=== PATIENT | female | born 1955 | race Caucasian/White ===

== ENCOUNTER → 2020-04-18 14:02 | Outpatient (CLI) | payer OTHER, SELFPAY ==
[2020-04-18 14:26] LABS: Chloride 107 mmol/L (98-107); Potassium 4.5 mmoL/L (3.5-5.1); Sodium 138 mmol/L (136-145)
[2020-04-18 14:28] LABS: Alanine Aminotransferase 26 U/L (12-78); Alkaline Phosphatase 86 U/L (38-126); Anion Gap 14.5 mEq/L (5-15); Aspartate Amino Transferase 41 U/L (14-36); Bilirubin,Total 0.3 mg/dl (0.2-1.3); Blood Urea Nitrogen 23 mg/dl (7-17); Carbon Dioxide 21 mmol/L (22.0-30.0); Estimated Glomerular Filt Rate 63 ml/min (>60); GFR (African American) 77 ML/MIN (>60)
[2020-04-18 14:29] LABS: Albumin Level 4.7 g/dl (3.5-5.0); Albumin/Globulin Ratio 1.6 (1.1-1.8); Calcium 10.1 mg/dl (8.4-10.2); Chol/HDL Ratio 2.2 (1-3.5); Cholesterol 225 mg/dl (140-200); Globulin 2.9 g/dL (1.3-3.2); Glucose 146 mg/dl (74-100); HDL Cholesterol 102 mg/dl (40-60); Iron 102 ug/dL (37-170); Total Protein,Serum 7.6 g/dl (6.3-8.2); Triglycerides 81 mg/dl (30-150); VLDL Cholesterol 16 mg/dL (0-40)
[2020-04-18 14:36] LABS: Basophils # 0.1 K/mm3 (0-0.2); Basophils % 1.1 % (0.1-2.0); Eosinophils # 0.3 K/mm3 (0.0-0.4); Eosinophils % 3.5 % (0.1-12.0); Hematocrit 34.3 % (37.0-47.0); Hemoglobin 10.8 g/dL (12.2-16.2); Lymphocytes # 1.8 K/mm3 (0.7-4.5); Mean Corpuscular HGB Conc 31.5 g/dL (31.8-35.4); Mean Corpuscular Hemoglobin 30.8 pg (27.0-31.2); Mean Corpuscular Volume 97.7 fl (81-99); Mean Platelet Volume 8.6 fl (7.4-10.4); Monocytes # 0.6 K/mm3 (0.1-1.0); Monocytes % 7.3 % (1.7-9.3); Neutrophils # 5.4 K/mm3 (1.8-7.8); Platelet Count 332 K/mm3 (142-424); Red Blood Count 3.51 M/mm3 (4.20-5.40); Red Cell Distribution Width 12.9 % (11.5-17.5); White Blood Count 8.2 K/mm3 (4.8-10.8)
[2020-04-18 14:41] LABS: Direct LDL Cholesterol 90.86 mg/dL (100-129)
[2020-04-18 14:46] LABS: T4 (Thyroxine) 9.7 ug/dl (5.53-11.0)
[2020-04-18 15:14] LABS: Hemoglobin A1C 5.9 % (4.0-6.0)
[2020-04-19 15:30] LABS: Ferritin 63.8 ng/ml (11.1-264)
[2020-04-19 18:27] LABS: Total Iron Binding Capacity 299 ug/dL (265-497)
[2020-04-19 20:05] LABS: Iron 100 ug/dL (37-170)
== END ==
PROVIDERS: Visit Provider Physician Assistant
DX: D64.9 Anemia, unspecified (principal); I10 Essential (primary) hypertension
CPT/HCPCS: 80053; 80061; 82728; 83036; 83540; 83550; 84436; 84443; 85025

== ENCOUNTER → 2020-08-01 09:02 | Outpatient (CLI) | payer OTHER, SELFPAY ==
--- NOTE | 2020-08-01 09:03 | XR_ITS ---
PROCEDURE: XR DEXA AXIAL SKELETON CLINICAL HISTORY: postmenopausal female COMPARISON: No exams were available for comparison FINDINGS: The right hip BMD is 0.636 with a T-score of -1.9. The left hip BMD is 0.634 with a T-score of -1.9. The lumbar spine BMD is 0.952 with a T-score of -0.9. IMPRESSION: This patient is considered osteopenic according to the World Health Organization criteria. Bone density is between 10 and 25 percent below young normal. Fracture risk is moderate. Treatment is advised. Based on these results a follow-up exam is recommended in 2 year. Dictated by: Jhonathan Lugo MD 08/01/2020 19:32 Jhonathan Lugo MD in [place] 08/02/2020 20:33
== END ==
PROVIDERS: PCP Emergency Medicine; Visit Provider Physician Assistant
DX: Z78.0 Asymptomatic menopausal state (principal)
CPT/HCPCS: 77080

== ENCOUNTER → 2021-01-16 14:02 | Outpatient (CLI) | payer OTHER, SELFPAY ==
--- NOTE | 2021-01-16 14:02 | US_ITS ---
PROCEDURE: US BREAST LT COMPLETE CLINICAL INDICATION: patient refuses mammogram History of right breast cancer COMPARISON: US US BREAST RT COMPLETE from 01/16/2021 FINDINGS: At 2 o'clock outer there is a small hypoechoic nodule at 3 mm. The remaining breast has an unremarkable sonographic appearance. No old studies available for comparison. IMPRESSION: Category 0, incomplete. Hypoechoic nodule at 2 o'clock measuring 3 mm. Recommend correlation with mammography Dictated by: Jhonathan Lugo MD 01/25/2021 10:03 Jhonathan Lugo MD in [place] 01/25/2021 10:03
--- NOTE | 2021-01-16 14:02 | US_ITS ---
PROCEDURE: US BREAST RT COMPLETE CLINICAL INDICATION: patient refuses mammogram History of right breast cancer with surgery and radiation COMPARISON: No exams were available for comparison FINDINGS: At the 10 o'clock position there is an area asymmetric decreased echogenicity possibly due to patient's scar. This measures approximately 1.5 by 0.6 cm no other abnormalities are evident. IMPRESSION: Hypoechoic irregular region at the 10 o'clock area and at the region of the patient's scar. This could be due to scarring. Unfortunately a single ultrasound without comparison cannot exclude the possibility of neoplasm based on sonographic appearance. Mammogram and correlation with old imaging studies suggested BI-RADS category 0 incomplete. Recommend diagnostic mammogram and correlation with old studies. Dictated by: Jhonathan Lugo MD 01/25/2021 10:01 Jhonathan Lugo MD in [place] 01/25/2021 10:01
== END ==
PROVIDERS: PCP Physician Assistant; Visit Provider Physician Assistant
DX: N64.4 Mastodynia (principal)
CPT/HCPCS: 76641

== ENCOUNTER → 2021-02-10 13:31 | Outpatient (CLI) | payer OTHER, SELFPAY ==
--- NOTE | 2021-02-10 13:31 | MM_ITS ---
PROCEDURE: MM DIG MAMM BI DX W/CAD Digital Breast Tomosynthesis Included CLINICAL INDICATION: abn breast u/s Patient with history of breast cancer with abnormal ultrasound. COMPARISON: MG MG [facility]STER MAMMOGRAPHY DX DIGITAL from 02/29/2012 MG,US US BREAST RT from 02/29/2012 US US BREAST RT COMPLETE from 01/16/2021 US US BREAST LT COMPLETE from 01/16/2021 TECHNIQUE: Standard CC and MLO images and 3D Tomosynthesis was obtained. R2 CAD reviewed. FINDINGS: Report delayed waiting on old studies for comparison made available on 02/17/2021 There is average fibroglandular tissue. There postsurgical changes in the upper outer aspect of the right breast with some architectural distortion likely from scarring. Surgical clips are present in this region. There are numerous benign-appearing calcifications. Ultrasound of the right breast demonstrated a hypoechoic area at the 10 o'clock region which may be related to postsurgical scar. There well-circumscribed 9 mm nodules present in the upper outer aspect of the left breast with central lucency consistent with a lymph node. No malignant appearing mass evident in the left breast. No malignant appearing microcalcifications. There is some faint calcifications in the central left breast at the 12 o'clock region best seen on the CC views probably unchanged given difference in technique. No mammographic abnormality to correspond to the 2 mm nodule on the mammogram in the left breast. IMPRESSION: Probably benign findings with postsurgical changes of the right breast and faint calcification in the left breast. Suggest 6 month bilateral sonographic and mammographic follow-up to confirm stability BI-RAD Category: 3 Probably Benign Finding Short Term Follow-Up FOLLOW-UP: 6M 6 Month Follow-up (A letter has been sent to the patient regarding results of the study.) Dictated by: Jhonathan Lugo MD 02/20/2021 10:10 Jhonathan Lugo MD in [place] 02/20/2021 10:10
== END ==
PROVIDERS: PCP Physician Assistant; Visit Provider Physician Assistant
DX: R92.8 Other abnormal and inconclusive findings on diagnostic imaging of breast (principal)
CPT/HCPCS: 77062; 77066; G0279

== ENCOUNTER 2021-04-17 13:01 | Emergency (ER) | payer OTHER, SELFPAY ==
[2021-04-17 13:20] VITALS: BP 118/85; PULSE 95; RESP 18; TEMP 36.8; O2SAT 95; BMI 20.6
--- NOTE | 2021-04-17 13:58 | HMH.EDUTC ---
[facility] [place] Disposition Clinical Impression: Sciatica Qualifiers: Laterality: right Qualified Code(s): M54.31 - Sciatica, right side Disposition: Home, Self-Care Condition on Discharge: Good Instructions: Sciatica, DI for Sciatica, Cyclobenzaprine, Etodolac Additional Instructions: *Etodolac geraldine 8 hours with meal as needed for pain/inflammation *Not additional anti-inflammatory like motrin, aleve, advil with the above amount of ibuprofen. You can still take Tylenol every 4 hours as needed if you need something else for pain *Ice 20 minutes every 2 hours for the first 48 hours after the initial injury followed by moist heat every 20 minutes 3-4 times a day to affected area *Muscle relaxer every 8 hours as needed for muscle spasms but remember, it WILL cause drowsiness You cannot take it and drive, operate machinery or care for small children. *Keep this area active, no movement leads to more stiffness, However take it easy and avoid heavy lifting pushing or pulling *Follow up with you family doctor if no improvement for further treatment Return if needed Straight to ER if any life threatening symptoms Prescriptions: Etodolac 200 mg PO Q8HP PRN #20 cap PRN Reason: Moderate Pain Transmission Status: Received by [id number] Cyclobenzaprine HCl [Flexeril 10mg tablet] 10 mg PO TID PRN 30 Days #90 tab PRN Reason: Muscle Spasm Transmission Status: Received by [id number] Referrals: Susana Garcias PA [Primary Care Provider] - As needed Time of Disposition: 14:16 Medical Decision Making - Marco Inquiry Pt receiving controlled substance: No Marco was queried for this patient: No Vital Signs: 04/17/21 13:20 04/17/21 14:20 Temperature 98.2 F 98.2 F Temperature Source Oral Pulse Rate 95 H Pulse Rate [Right Brachial] 95 H Respiratory Rate 18 18 Blood Pressure 118/85 Blood Pressure [Right Arm] 118/85 Blood Pressure Mean [Right Arm] 96 Blood Pressure Source [Right Arm] Automatic Cuff Blood Pressure Position [Right Arm] Sitting 02 Sat by Pulse Oximetry 95 Oxygen Delivery Method Room Air Medical Decision Narrative: Recommended xray and patient declined denies pain in her back reports starts at top of buttock area and ran down into upper leg [facility] [place] HPI - General Stated complaint: Right thigh pain Time Seen by Provider: 04/17/21 13:58 Mode of Arrival: Ambulatory Source of Information: Patient Limitations: No Limitations Description of Symptoms (Recalled from Triage Doc. by RN): PATIENT C/O RIGHT THIGH PAIN THAT RADIATES INTO RIGHT HIP THAT STARTED SATURDAY NIGHT HEENT Symptoms (Recalled from RN notes): No Resp Symptoms (Recalled from RN notes): No Skin Symptoms (Recalled from RN notes): No MS Symptoms (Recalled from RN notes): Yes Functional Status (Recalled from RN notes): WNL - History of Present Illness Provider Complaint: Patient states that she noticed about 3-4 days ago she was having pain in her right thigh area into her right hip States that she wasnt sure if the pain was coming from the hip to the thigh or what but she noticed she was sore just above her buttock area States feels like pain is now in her buttock area too Denies back pain States that pain is worse when she tries to sit or lay on that side States that she has tried muscle rubs but hasnt helped much - Related Data Previous Rx's Medication Instructions Recorded fluticasone propionate 50 1 spray INTRANASAL QDAY 90 Days 07/18/20 mcg/actuation nasal #47.4 g spray,suspension loratadine 10 mg tablet 10 mg PO DAILY #90 tab 07/18/20 atorvastatin 20 mg tablet See Rx Instructions .ROUTE 01/11/21 .COMPLEX #90 tab calcium carbonate 600 mg (1,500 1 tab PO DAILY #90 tab 01/11/21 mg)-vitamin D3 400 unit tablet cyclobenzaprine 10 mg tablet 10 mg PO TID PRN #30 tab 01/11/21 pramipexole 1 mg tablet See Rx Instructions .ROUTE 01/11/21 .COMPLEX #90 tab denosumab 60 mg/mL subcutaneous 60 mg SQ [id number] #1 ml 01/12/21 dashain
[2021-04-17 14:20] VITALS: BP 118/85; PULSE 95; RESP 18; TEMP 36.8; O2SAT 95
== END 2021-04-17 14:24 | disposition home or self-care (01) ==
PROVIDERS: Emergency Provider Nurse Practitioner; PCP Physician Assistant
DX: M54.31 Sciatica, right side (principal); E78.5 Hyperlipidemia, unspecified
CPT/HCPCS: 99202; G0463

== ENCOUNTER 2021-06-09 12:49 | Emergency (ER) | payer OTHER, SELFPAY ==
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
--- NOTE | 2021-06-09 14:35 | XR_ITS ---
PROCEDURE: XR SHOULDER RT MIN 2V CLINICAL INDICATION: right shoulder pain COMPARISON: No exams were available for comparison FINDINGS: No fracture apparent. Mild superior elevation of the distal aspect of the right clavicle at 6 mm. Minimal osteoarthritic change glenohumeral joint. Slight cortical irregularity of the greater tuberosity which may be seen with rotator cuff disease. Other findings:Surgical clips are present in the right axilla IMPRESSION: Degenerative changes Dictated by: Jhonathan Lugo MD 06/12/2021 10:01 Jhonathan Lugo MD in [place] 06/12/2021 10:01
[2021-06-09 14:38] VITALS: BP 156/84; PULSE 81; RESP 18; TEMP 36.8; O2SAT 97
[2021-06-09 15:37] VITALS: BP 156/84; PULSE 81; RESP 18; TEMP 36.8; O2SAT 97
== END 2021-06-09 15:39 | disposition home or self-care (01) ==
PROVIDERS: Emergency Provider Nurse Practitioner Family; PCP Emergency Medicine
DX: M25.511 Pain in right shoulder (principal); E78.5 Hyperlipidemia, unspecified; Z88.8 Allergy status to other drugs, medicaments and biological substances
CPT/HCPCS: 73030; 96372; 99202; G0463

== ENCOUNTER → 2021-08-22 09:18 | Outpatient (POV) | payer MEDICARE, OTHER, SELFPAY | PROVIDERS: Visit Provider Dermatology | DX: Z00.00 Encounter for general adult medical examination without abnormal findings (principal) ==

== ENCOUNTER → 2021-08-23 13:24 | Outpatient (CLI) | payer MEDICARE, OTHER, SELFPAY ==
--- NOTE | 2021-08-23 13:24 | MM_ITS ---
PROCEDURE INFORMATION: Exam: US Right Breast, Complete US Left Breast, Complete MG Bilateral Diagnostic Breast Tomosynthesis Exam date and time: 08/23/2021 1:24 PM Age: 66 years old Clinical indication: History of right lumpectomy and radiation therapy. Short-term follow-up was recommended on 02/10/2021 to assess stability of central left 12 o'clock calcifications and right postoperative findings TECHNIQUE: Imaging protocol: Complete ultrasound of all four quadrants of the Right breast and the retroareolar regions, including ultrasound of the axilla when performed. Complete ultrasound of all four quadrants of the Left breast and the retroareolar regions, including ultrasound of the axilla when performed. Bilateral Diagnostic tomosynthesis and 2D mammography including computer-aided detection (CAD) when performed. Unilateral or bilateral exam. COMPARISON: 1. MG MM DIG MAMM BI DX W/CAD 02/10/2021 1:34 PM 2. US BREAST LT COMPLETE 01/16/2021 3:07 PM 3. US BREAST RT COMPLETE 01/16/2021 2:57 PM FINDINGS: MAMMOGRAPHY: There are scattered areas of fibroglandular density. There are stable postoperative changes within the right breast and axilla Stable benign-appearing calcifications are present. No new mass, architectural distortion, or suspicious calcifications have developed to suggest malignancy. No axillary adenopathy. ULTRASOUND: Right: Horizontal isoechoic circumscribed structure along the 10 o'clock axis 8 cm from the right nipple has features highly suggestive of postoperative scarring and fat lobule measuring 2.2 x 0.5 x 1.2 cm. No suspicious solid or cystic mass is present. No architectural distortion or shadowing is present. No axillary adenopathy is present. Left: Minimally complex and simple cysts within the left breast measure 4 mm left 1 o'clock 4 cm from the nipple, 3 mm left 1 o'clock 3 cm from the nipple and 6 mm left retroareolar. No suspicious solid or cystic mass is present. No architectural distortion or shadowing is present. No axillary adenopathy is present. IMPRESSION: No mammographic or sonographic evidence of malignancy. Recommend annual screening mammography unless otherwise clinically indicated. ASSESSMENT: BI-RADS category 2: Benign
--- NOTE | 2021-08-23 13:24 | CT_ITS ---
FINAL REPORT CLINICAL HISTORY: lung cancer screening FINDINGS: Low-Dose Chest CT CTDI vol (mGy): 2.90 DLP (mGy-cm): 100.03 Axial images were obtained from the lung apex to the mid abdomen by computed tomography. Low-dose protocol was utilized. FINDINGS: CHEST: There is no axillary adenopathy. There is no hilar or mediastinal adenopathy. The heart is proper size. There is no pericardial or pleural effusion. Limited images of the upper abdomen demonstrate an 8 mm low-attenuation mass in the right hepatic lobe which is nonspecific and may represent a cyst. Lung window images demonstrate mild emphysema. There is mild scarring. There is a 3 mm nodule in the right upper lobe on image 15. There are postoperative changes in the right axilla. IMPRESSION: Lung RADS category 2. Recommend 12 month follow-up low-dose chest CT. Reviewed, Interpreted and Dictated by Kel Moctezuma III, MD Transcribed by Katiana Witt Authenticated by Kel Moctezuma III, MD on 08/23/2021 02:49:12 PM [facility]
== END ==
PROVIDERS: PCP Physician Assistant; Visit Provider Physician Assistant
DX: R92.8 Other abnormal and inconclusive findings on diagnostic imaging of breast (principal); Z87.891 Personal history of nicotine dependence; Z12.2 Encounter for screening for malignant neoplasm of respiratory organs
CPT/HCPCS: 71271; 76641; 77062; 77066; G0279

== ENCOUNTER → 2021-09-13 16:08 | Outpatient (CLI) | payer MEDICARE, OTHER, SELFPAY ==
[2021-09-20 15:11] LABS: D001-IgE D pteronyssinus <0.10 kU/L (Class 0); D002-IgE D farinae <0.10 kU/L (Class 0); E001-IgE Cat Dander <0.10 kU/L (Class 0); E005-IgE Dog Dander <0.10 kU/L (Class 0); E072-IgE Mouse Urine <0.10 kU/L (Class 0); G002-IgE Bermuda Grass <0.10 kU/L (Class 0); G006-IgE Timothy Grass <0.10 kU/L (Class 0); I006-IgE Cockroach, German <0.10 kU/L (Class 0); Immunoglobulin E, Total 33 IU/mL (6-495); M001-IgE Penicillium chrysogen <0.10 kU/L (Class 0); M002-IgE Cladosporium herbarum <0.10 kU/L (Class 0); M003-IgE Aspergillus fumigatus <0.10 kU/L (Class 0); M006-IgE Alternaria alternata <0.10 kU/L (Class 0); T001-IgE Maple/Box Elder <0.10 kU/L (Class 0); T003-IgE Common Silver Birch <0.10 kU/L (Class 0); T006-IgE Cedar, Mountain <0.10 kU/L (Class 0); T007-IgE Oak, White <0.10 kU/L (Class 0); T008-IgE Elm, American <0.10 kU/L (Class 0); T010-IgE Walnut <0.10 kU/L (Class 0); T011-IgE Maple Leaf Sycamore <0.10 kU/L (Class 0); T014-IgE Cottonwood <0.10 kU/L (Class 0); T015-IgE Ash, White <0.10 kU/L (Class 0); T022-IgE Pecan, Hickory <0.10 kU/L (Class 0); T070-IgE White Mulberry <0.10 kU/L (Class 0); W001-IgE Ragweed, Short <0.10 kU/L (Class 0); W011-IgE Thistle, Russian <0.10 kU/L (Class 0); W014-IgE Pigweed, Common <0.10 kU/L (Class 0); W018-IgE Sheep Sorrel <0.10 kU/L (Class 0)
== END ==
PROVIDERS: Visit Provider Otolaryngology
DX: J32.9 Chronic sinusitis, unspecified (principal); R05.3 Chronic cough; J30.9 Allergic rhinitis, unspecified
CPT/HCPCS: 36415; 82785; 86003

== ENCOUNTER → 2021-10-05 14:45 | Outpatient (CLI) | payer MEDICARE, OTHER, SELFPAY ==
--- NOTE | 2021-10-05 14:45 | CT_ITS ---
FINAL REPORT TECHNIQUE: Thin section axial CT images of the facial bones and sinuses were obtained without contrast. Coronal reformatted images were also obtained. This study was performed with techniques to keep radiation doses as low as reasonably achievable, (ALARA). Individualized dose reduction techniques using automated exposure control or adjustment of mA and/or kV according to the patient''''s size were employed. CLINICAL HISTORY: chronci sinusitis FINDINGS: There is no evidence of mucosal thickening. No fluid levels are identified. The ostiomeatal units have an unremarkable appearance. There is mild leftward septal deviation. No fracture or acute bony abnormality is identified. IMPRESSION: No focal abnormality identified of the sinuses. Reviewed, Interpreted and Dictated by Kel Moctezuma III, MD Transcribed by Wilda Layton Authenticated by Kel Moctezuma III, MD on 10/05/2021 04:22:25 PM [facility]
== END ==
PROVIDERS: PCP Physician Assistant; Visit Provider Otolaryngology
DX: J32.9 Chronic sinusitis, unspecified (principal)
CPT/HCPCS: 70486

== ENCOUNTER → 2022-04-19 15:26 | Outpatient (CLI) | payer MEDICARE, OTHER, SELFPAY ==
[2022-04-19 14:03] LABS: Alanine Aminotransferase 22 U/L (12-78); Albumin Level 4.2 g/dl (3.5-5.0); Albumin/Globulin Ratio 1.6 (1.1-1.8); Alkaline Phosphatase 102 U/L (38-126); Anion Gap 9.4 mEq/L (5-15); Aspartate Amino Transferase 35 U/L (14-36); Blood Urea Nitrogen 19 mg/dl (7-17); Calcium 9.2 mg/dl (8.4-10.2); Carbon Dioxide 27 mmol/L (22.0-30.0); Chloride 104 mmol/L (98-107); Chol/HDL Ratio 2.1 (1-3.5); Cholesterol 222 mg/dl (140-200); Estimated Glomerular Filt Rate 72 ml/min (>60); GFR (African American) 87 ML/MIN (>60); Globulin 2.6 g/dL (1.3-3.2); Glucose 105 mg/dl (74-100); HDL Cholesterol 108 mg/dl (40-60); Potassium 4.4 mmoL/L (3.5-5.1); Sodium 136 mmol/L (136-145); Total Protein,Serum 6.8 g/dl (6.3-8.2); Triglycerides 65 mg/dl (30-150); VLDL Cholesterol 13 mg/dL (0-40)
[2022-04-19 14:04] LABS: Bilirubin,Total < 0.1 mg/dl (0.2-1.3)
[2022-04-19 14:14] LABS: C-Reactive Protein 0.4 mg/L (0-4); Direct LDL Cholesterol 78.14 mg/dL (100-129)
[2022-04-19 14:21] LABS: 25-OH Vitamin D, Total 44.2 ng/mL (30-100)
[2022-04-19 14:33] LABS: Thyroid Stimulating Hormone 0.73 uIU/mL (0.465-4.68)
[2022-04-19 15:02] LABS: Erythrocyte Sedimentation Rate 50 mm/hr (0-30)
[2022-04-19 15:06] LABS: Basophils # 0.1 K/mm3 (0-0.2); Basophils % 0.9 % (0.1-2.0); Eosinophils # 0.3 K/mm3 (0.0-0.4); Eosinophils % 3.4 % (0.1-12.0); Hematocrit 34.7 % (37.0-47.0); Hemoglobin 10.5 g/dL (12.2-16.2); Lymphocytes # 1.2 K/mm3 (0.7-4.5); Lymphocytes % 15.2 % (10-50); Mean Corpuscular HGB Conc 30.3 g/dL (31.8-35.4); Mean Corpuscular Hemoglobin 30.1 pg (27.0-31.2); Mean Corpuscular Volume 99.4 fl (81-99); Mean Platelet Volume 8.1 fl (7.4-10.4); Monocytes # 0.6 K/mm3 (0.1-1.0); Monocytes % 7.4 % (1.7-9.3); Neutrophils # 5.6 K/mm3 (1.8-7.8); Neutrophils % 73.1 % (37.0-80.0); Platelet Count 373 K/mm3 (142-424); Red Blood Count 3.49 M/mm3 (4.20-5.40); White Blood Count 7.7 K/mm3 (4.8-10.8)
[2022-04-20 11:43] LABS: Total Iron Binding Capacity 280 ug/dL (265-497)
[2022-04-20 11:53] LABS: Ferritin 37.8 ng/ml (11.1-264); Iron 75 ug/dL (37-170)
[2022-04-21 09:54] LABS: RA Latex Turbid. 10.4 IU/mL (<14.0)
[2022-04-21 15:51] LABS: C-Peptide 3.6 ng/mL (1.1-4.4)
[2022-04-23 13:09] LABS: Anti-Centromere B Antibodies <0.2 AI (0.0-0.9); Anti-DNA (DS) Ab Qn 1 IU/mL (0-9); Anti-Jo-1 <0.2 AI (0.0-0.9); Anti-Smith Antibody <0.2 AI (0.0-0.9); Antichromatin Antibodies <0.2 AI (0.0-0.9); Antiscleroderma-70 Antibodies <0.2 AI (0.0-0.9); RNP Antibodies <0.2 AI (0.0-0.9); Sjogren's Anti-SS-A <0.2 AI (0.0-0.9); Sjogren's Anti-SS-B <0.2 AI (0.0-0.9)
[2022-04-24 00:07] LABS: Anti-Cyclic Citrullinated Pept 3 units (0-19)
== END ==
PROVIDERS: PCP Physician Assistant; Visit Provider Physician Assistant
DX: M19.90 Unspecified osteoarthritis, unspecified site (principal); E78.5 Hyperlipidemia, unspecified; R53.83 Other fatigue; M79.642 Pain in left hand; M85.89 Other specified disorders of bone density and structure, multiple sites
CPT/HCPCS: 80053; 80061; 82306; 82728; 83540; 83550; 84443; 84681; 85025; 85651; 86140; 86200; 86225; 86235; 86431

== ENCOUNTER → 2022-04-24 12:45 | Outpatient (CLI) | payer MEDICARE, OTHER, SELFPAY ==
--- NOTE | 2022-04-24 12:50 | XR_ITS ---
FINAL REPORT CLINICAL HISTORY: hand pain FINDINGS: RIGHT HAND 3 views of the right hand were obtained. There is no acute fracture or dislocation. There are mild and moderate degenerative changes which are worse at the 1st interphalangeal joint. There are loose bodies in this region. IMPRESSION: Mild and moderate degenerative changes, worse at the 1st interphalangeal joint. Reviewed, Interpreted and Dictated by Kel Moctezuma III, MD Transcribed by Katiana Witt Authenticated and [facility]
--- NOTE | 2022-04-24 12:50 | XR_ITS ---
FINAL REPORT CLINICAL HISTORY: pain FINDINGS: LEFT HAND 3 views of the left hand were obtained. There is no acute fracture or dislocation. There are mild and moderate degenerative changes which are worse at the 1st CMC joint. There is a chronic calcification adjacent to the ulnar styloid process. IMPRESSION: Mild and moderate degenerative changes, worse at the 1st CMC joint. Reviewed, Interpreted and Dictated by Kel Moctezuma III, MD Transcribed by Katiana Witt Authenticated and [facility]
== END ==
PROVIDERS: PCP Physician Assistant; Visit Provider Nurse Practitioner Family
DX: M79.642 Pain in left hand (principal); M79.641 Pain in right hand
CPT/HCPCS: 73130

== ENCOUNTER → 2023-03-11 15:14 | Outpatient (CLI) | payer MEDICARE, OTHER, SELFPAY ==
[2023-03-11 12:59] LABS: Basophils # 0.1 K/mm3 (0-0.2); Basophils % 0.7 % (0.1-2.0); Eosinophils # 0.4 K/mm3 (0.0-0.4); Eosinophils % 5.3 % (0.1-12.0); Hematocrit 35.4 % (37.0-47.0); Lymphocytes # 1.5 K/mm3 (0.7-4.5); Lymphocytes % 19.8 % (10-50); Mean Corpuscular HGB Conc 31.1 g/dL (31.8-35.4); Mean Corpuscular Hemoglobin 30.5 pg (27.0-31.2); Mean Corpuscular Volume 98.2 fl (81-99); Monocytes # 0.6 K/mm3 (0.1-1.0); Monocytes % 8.4 % (1.7-9.3); Neutrophils % 65.8 % (37.0-80.0); Platelet Count 371 K/mm3 (142-424); Red Cell Distribution Width 13.7 % (11.5-17.5); White Blood Count 7.6 K/mm3 (4.8-10.8)
[2023-03-11 13:37] LABS: 25-OH Vitamin D, Total 38.5 ng/mL (30-100)
[2023-03-11 14:18] LABS: Chloride 104 mmol/L (98-107)
[2023-03-11 14:19] LABS: Potassium 4.5 mmoL/L (3.5-5.1); Sodium 139 mmol/L (136-145)
[2023-03-11 14:21] LABS: Alanine Aminotransferase 24 U/L (12-78); Albumin/Globulin Ratio 1.4 (1.1-1.8); Alkaline Phosphatase 80 U/L (38-126); Anion Gap 13.5 mEq/L (5-15); Aspartate Amino Transferase 32 U/L (14-36); Bilirubin,Total 0.2 mg/dl (0.2-1.3); Blood Urea Nitrogen 16 mg/dl (7-17); Carbon Dioxide 26 mmol/L (22.0-30.0); Cholesterol 246 mg/dl (140-200); Estimated Glomerular Filt Rate 63 ml/min (>60); GFR (African American) 76 ML/MIN (>60); Globulin 2.9 g/dL (1.3-3.2); Total Protein,Serum 6.9 g/dl (6.3-8.2); Triglycerides 147 mg/dl (30-150); VLDL Cholesterol 29 mg/dL (0-40)
[2023-03-11 14:22] LABS: Calcium 9.7 mg/dl (8.4-10.2); Chol/HDL Ratio 2.5 (1-3.5); Glucose 95 mg/dl (74-100); HDL Cholesterol 97 mg/dl (40-60); Magnesium 2.1 mg/dl (1.6-2.3)
[2023-03-11 14:33] LABS: Direct LDL Cholesterol 95.15 mg/dL (100-129)
[2023-03-11 16:57] LABS: Iron 68 ug/dL (37-170)
[2023-03-11 17:06] LABS: Total Iron Binding Capacity 251 ug/dL (265-497)
[2023-03-11 17:37] LABS: Ferritin 67.8 ng/ml (11.1-264)
[2023-03-14 10:51] LABS: Lyme B. burgdorferi PCR Blood Negative (Negative)
[2023-03-14 18:24] LABS: F026-IgE Pork 0.21 kU/L (Class 0/I); F027-IgE Beef 0.39 kU/L (Class I); F088-IgE Lamb 0.36 kU/L (Class I); Immunoglobulin E, Total 78 IU/mL (6-495); O215-IgE Alpha-Gal 4.02 kU/L (Class IV)
== END ==
PROVIDERS: PCP Physician Assistant; Visit Provider Physician Assistant
DX: F41.9 Anxiety disorder, unspecified (principal); G25.81 Restless legs syndrome; M79.642 Pain in left hand; E78.5 Hyperlipidemia, unspecified; M85.80 Other specified disorders of bone density and structure, unspecified site; D64.9 Anemia, unspecified
CPT/HCPCS: 80053; 80061; 82306; 82728; 83540; 83550; 83735; 84443; 85025; 87476

== ENCOUNTER → 2023-07-18 16:48 | Outpatient (CLI) | payer MEDICARE, OTHER, SELFPAY ==
[2023-07-18 16:38] LABS: Amphetamine/Metha Screen,Urine Negative ng/ml (<1000)
[2023-07-18 16:39] LABS: Barbiturates Screen,Urine Negative ng/ml (<200)
[2023-07-18 16:40] LABS: Benzodiazepines Screen,Urine Negative ng/ml (<200); Cannabinoid Screen,Urine Positive ng/ml (<50)
[2023-07-18 16:41] LABS: Cocaine Screen,Urine Negative ng/ml (<300); Methadone Screen,Urine Negative ng/ml (<300)
[2023-07-18 16:42] LABS: Opiate Screen,Urine Negative ng/ml (<300)
[2023-07-18 16:43] LABS: Phencyclidine Screen,Urine Negative ng/ml (<25)
== END ==
LOC: LAB.DROPOF 16:49
PROVIDERS: PCP Physician Assistant; Visit Provider Physician Assistant
DX: Z79.899 Other long term (current) drug therapy (principal)
CPT/HCPCS: 80307

== ENCOUNTER 2024-03-16 13:24 | Outpatient (CLI) | payer MEDICARE, OTHER, SELFPAY ==
--- NOTE | 2024-03-16 13:25 | CT_ITS ---
FINAL REPORT CLINICAL HISTORY: sinusitis COMPARISON: 10/05/2021 FINDINGS: CT SINUSES: The paranasal sinuses are well aerated. The ostiomeatal units are patent. No air-fluid levels are identified. There is no fracture. IMPRESSION: Well aerated paranasal sinuses, with patent ostiomeatal units and no air-fluid levels. Reviewed, Interpreted and Dictated by Wayne Tolbert MD Transcribed by Emmy Tovar Authenticated and [facility]
== END 2024-03-16 23:59 | disposition home or self-care (01) ==
LOC: RAD 13:25
PROVIDERS: PCP Physician Assistant; Visit Provider Nurse Practitioner
DX: J32.9 Chronic sinusitis, unspecified (principal); Z87.891 Personal history of nicotine dependence
CPT/HCPCS: 70486

== ENCOUNTER 2024-04-09 19:29 | Outpatient (CLI) | payer MEDICARE, OTHER, SELFPAY ==
[2024-04-09 18:43] LABS: Basophils # 0.1 K/mm3 (0-0.2); Basophils % 1.1 % (0.1-2.0); Eosinophils # 0.3 K/mm3 (0.0-0.4); Eosinophils % 4.3 % (0.1-12.0); Hematocrit 34.4 % (37.0-47.0); Hemoglobin 10.5 g/dL (12.2-16.2); Lymphocytes # 1.3 K/mm3 (0.7-4.5); Lymphocytes % 22.3 % (10-50); Mean Corpuscular HGB Conc 30.5 g/dL (31.8-35.4); Mean Corpuscular Hemoglobin 31.5 pg (27.0-31.2); Mean Corpuscular Volume 103.3 fl (81-99); Mean Platelet Volume 8.3 fl (7.4-10.4); Monocytes # 0.5 K/mm3 (0.1-1.0); Monocytes % 9.1 % (1.7-9.3); Neutrophils # 3.8 K/mm3 (1.8-7.8); Neutrophils % 63.1 % (37.0-80.0); Platelet Count 383 K/mm3 (142-424); Red Blood Count 3.33 M/mm3 (4.20-5.40); Red Cell Distribution Width 13.8 % (11.5-17.5); White Blood Count 5.9 K/mm3 (4.8-10.8)
[2024-04-09 19:48] LABS: Alanine Aminotransferase 20 U/L (12-78); Albumin Level 4.3 g/dl (3.5-5.0); Albumin/Globulin Ratio 1.5 (1.1-1.8); Alkaline Phosphatase 82 U/L (38-126); Anion Gap 11.8 mEq/L (5-15); Aspartate Amino Transferase 35 U/L (14-36); Bilirubin,Total 0.3 mg/dl (0.2-1.3); Blood Urea Nitrogen 21 mg/dl (7-17); Calcium 9.8 mg/dl (8.4-10.2); Carbon Dioxide 24 mmol/L (22.0-30.0); Chloride 109 mmol/L (98-107); Chol/HDL Ratio 2.9 (1-3.5); Cholesterol 289 mg/dl (140-200); Estimated Glomerular Filt Rate 72 ml/min (>60); GFR (African American) 87 ML/MIN (>60); Globulin 2.9 g/dL (1.3-3.2); Glucose 96 mg/dl (74-100); HDL Cholesterol 101 mg/dl (40-60); Potassium 4.8 mmoL/L (3.5-5.1); Sodium 140 mmol/L (136-145); Total Protein,Serum 7.2 g/dl (6.3-8.2); Triglycerides 69 mg/dl (30-150); VLDL Cholesterol 14 mg/dL (0-40)
[2024-04-09 20:00] LABS: Direct LDL Cholesterol 134.12 mg/dL (100-129)
[2024-04-09 20:17] LABS: Hemoglobin A1C 5.5 % (4.0-6.0)
[2024-04-09 20:18] LABS: Thyroid Stimulating Hormone 1.05 uIU/mL (0.465-4.68)
== END 2024-04-09 23:59 | disposition home or self-care (01) ==
LOC: LAB.DROPOF 19:30
PROVIDERS: PCP Family Medicine; Visit Provider Family Medicine
DX: R53.83 Other fatigue (principal); E78.5 Hyperlipidemia, unspecified
CPT/HCPCS: 80053; 80061; 83036; 84443; 85025

== ENCOUNTER 2024-04-28 07:33 | Outpatient (CLI) | payer MEDICARE, OTHER, SELFPAY ==
--- NOTE | 2024-04-28 07:34 | CT_ITS ---
FINAL REPORT TECHNIQUE: Thin section axial images were obtained from the lung apices to the upper abdomen by computed tomography. Reformatted images were obtained and reviewed. This study was performed with techniques to keep radiation doses al low as reasonably achievable (ALARA). Individualized dose reduction techniques using automated exposure control or adjustment of mA and/or kV according to the patient's size were employed. CLINICAL HISTORY: lung cancer screening Former smoker, quit 15 years ago, 1ppd x27 years when smoking consistent with a [id number] smoking history. COMPARISON: August 23, 2021. FINDINGS: CHEST CT LOW DOSE CTDI vol (mGy): 2.90 DLP (mGy-cm): 109.42 There are postoperative changes to the right breast. There is no axillary adenopathy. There is no mediastinal or hilar mass or adenopathy. The heart is normal in size. There is no pericardial or pleural effusion. There is mild emphysema and mild pulmonary scarring. Lung window images demonstrate no suspicious infiltrate or nodule. 3 mm right upper lobe nodule is stable. This is best seen on image 16 of series 3. This is calcified and consistent with a granuloma. There is no other mass or nodule identified. Limited images of the upper abdomen demonstrate several small hepatic cysts. IMPRESSION: No suspicious pulmonary nodule. Lung-RADS category 1. Recommend 12 month follow up low dose chest CT. Reviewed, Interpreted and Dictated by Kel Moctezuma III, MD Transcribed by Stella Dyson PA-C Authenticated and . [facility]
== END 2024-04-28 23:59 | disposition home or self-care (01) ==
LOC: RAD 07:34
PROVIDERS: PCP Family Medicine; Visit Provider Family Medicine
DX: Z87.891 Personal history of nicotine dependence (principal); R91.1 Solitary pulmonary nodule
CPT/HCPCS: 71271

== ENCOUNTER 2024-04-29 14:46 | Outpatient (CLI) | payer MEDICARE, OTHER, SELFPAY ==
--- NOTE | 2024-04-29 14:47 | MM_ITS ---
PROCEDURE INFORMATION: Exam: MG Bilateral Screening 3D Mammography Exam date and time: 04/29/2024 2:34 PM Age: 68 years old Clinical indication: Screening exam. No personal or family history of breast cancer. TECHNIQUE: Imaging protocol: Bilateral Screening tomosynthesis and 2D mammography including computer-aided detection (CAD) when performed. COMPARISON: 1. MG MM DIG MAMM BI DX W/CAD 08/23/2021 2:11 PM 2. MG MM DIG MAMM BI DX W/CAD 02/10/2021 1:34 PM FINDINGS: MAMMOGRAPHY: Breast composition: There are scattered areas of fibroglandular density. Mass: No suspicious masses. Architectural distortion: Postsurgical changes redemonstrated in the right breast. Calcifications: No suspicious calcifications. Asymmetric density: None. Skin thickening: None. Axillary adenopathy: None. IMPRESSION: No mammographic evidence of malignancy. Annual screening is recommended unless otherwise clinically indicated. ASSESSMENT: BI-RADS Category 2: Benign.
== END 2024-04-29 23:59 | disposition home or self-care (01) ==
LOC: RAD 14:47
PROVIDERS: PCP Family Medicine; Visit Provider Family Medicine
DX: Z12.31 Encounter for screening mammogram for malignant neoplasm of breast (principal)
CPT/HCPCS: 77063; 77067